=== PATIENT | male | born 1975 | race Caucasian/White ===

== ENCOUNTER 2022-06-20 13:51 | Emergency (ER) | payer OTHER ==
[~2022-06-20] VITALS: Ht 180.3 cm; Wt 106.4 kg
[2022-06-20 17:00] VITALS: BP 114/68
== END 2022-06-20 17:08 | disposition home or self-care (01) ==
LOC: EMS 13:55
DX: M25.571 Pain in right ankle and joints of right foot (principal); M25.561 Pain in right knee
CPT/HCPCS: 99284; 73562-TC; 73610-TC; Z7502

== ENCOUNTER 2024-01-27 10:14 | Emergency (ER) | payer OTHER ==
[~2024-01-27] VITALS: Ht 180.3 cm; Wt 109.0 kg
[2024-01-27 10:16] VITALS: BP 158/82; PULSE 67; RESP 20; TEMP 97; O2SAT 97
[2024-01-27] MEDS ORDERED: IBUP-1492 PO (13:09)
== END 2024-01-27 13:26 | disposition home or self-care (01) ==
LOC: EMS 10:14
DX: S86.911A Strain of unspecified muscle(s) and tendon(s) at lower leg level, right leg, initial encounter (principal); X58.XXXA Exposure to other specified factors, initial encounter; Y93.89 Activity, other specified; Y92.89 Other specified places as the place of occurrence of the external cause; Y99.0 Civilian activity done for income or pay
CPT/HCPCS: 99283

== ENCOUNTER 2024-11-17 09:52 | Emergency (ER) | payer OTHER ==
[~2024-11-17] VITALS: Ht 177.8 cm; Wt 109.1 kg
[~2024-11-17 09:52] MED LIST: IBUP-1492 PO
[2024-11-17 09:53] VITALS: TEMP 98.1
[2024-11-17 13:17] VITALS: BP 116/98; PULSE 84; RESP 18; O2SAT 99
== END 2024-11-17 13:21 | disposition home or self-care (01) ==
LOC: EMS 09:57
DX: S20.219A Contusion of unspecified front wall of thorax, initial encounter (principal); Z79.1 Long term (current) use of non-steroidal anti-inflammatories (NSAID); W19.XXXA Unspecified fall, initial encounter; W22.8XXA Striking against or struck by other objects, initial encounter; Y92.59 Other trade areas as the place of occurrence of the external cause; Y99.0 Civilian activity done for income or pay
CPT/HCPCS: 71101; 99283